=== PATIENT | male | born 1930 | race Caucasian/White ===

== ENCOUNTER 2019-05-14 17:51 | Inpatient (IN) | payer MEDICARE, OTHER ==
[~2019-05-14] VITALS: Ht 175.3 cm; Wt 77.3 kg
[~2019-05-14 17:51] MED LIST: ALBU18HF2 INH; ASPI81TA30 PO; CITA20TA19 PO; DONE5TAB3 PO; FORM12CA IH; HYT1T PO; LEVO50TA PO; LISI-600 PO; METO50TA16 PO; PRAV20TA4 PO; WARF-55 PO
[2019-05-14 18:46] LABS: BASOPHILS % (AUTO) 0.1 % (0-1); EOSINOPHILS % (AUTO) 0 % (0-6); HEMOGLOBIN 16.9 g/dl (14.0-17.9); LYMPHOCYTES # (AUTO) 1.5 X10'3 (1.1-4.8); LYMPHOCYTES % (AUTO) 8.1 % (21-51); MEAN CORPUSCULAR HEMOGLOBIN 30.6 PG (27.0-31.0); MEAN CORPUSCULAR HGB CONC 33.7 g/dL (33.0-36.5); MEAN CORPUSCULAR VOLUME 90.6 FL (78-98); MEAN PLATELET VOLUME 9.2 FL (7.4-10.4); MONOCYTES # (AUTO) 1.4 X10'3 (0-0.9); MONOCYTES % (AUTO) 7.2 % (2-12); NEUTROPHILS % (AUTO) 84.6 % (42-75); PLATELET COUNT 181 X10'3 (140-440); RED BLOOD COUNT 5.52 X10'6 (4.70-6.10); RED CELL DISTRIBUTION WIDTH 14.2 % (11.5-14.5); WHITE BLOOD COUNT 18.9 X10'3 (4.5-11.0)
[2019-05-14 18:58] LABS: ALANINE AMINOTRANSFERASE 497 U/L (12-78); ALBUMIN 3.5 G/DL (3.4-5.0); ALBUMIN/GLOBULIN RATIO 0.9 (1.1-1.5); ALKALINE PHOSPHATASE 149 IU/L (46-116); ANION GAP 12 (8-16); ASPARTATE AMINO TRANSFERASE 472 U/L (10-37); BILIRUBIN,TOTAL 1.7 MG/DL (0.1-1.0); BLOOD UREA NITROGEN 32 MG/DL (7-18); BUN/CREATININE RATIO 23.2 (5.4-32.0); CALCIUM 9.4 MG/DL (8.5-10.1); CHLORIDE 102 MMOL/L (99-107); CREATININE 1.38 MG/DL (0.60-1.10); GLUCOSE 159 MG/DL (70-104); LIPASE 78 U/L (73-393); POTASSIUM 4.6 MMOL/L (3.5-5.1); SODIUM 140 MMOL/L (135-145); TOTAL CARBON DIOXIDE 26.4 MMOL/L (24-32); TOTAL PROTEIN 7.5 G/DL (6.4-8.2); eGFR 49 ML/MIN
[2019-05-14 19:15] LABS: CLARITY,URINE CLOUDY (Clear); COLOR,URINE AMBER (Yellow); GLUCOSE, URINE NEGATIVE (Neg); KETONES,URINE NEGATIVE (Neg); LEUKOCYTE ESTERASE ,URINE NEGATIVE (Neg); NITRITES, URINE NEGATIVE (Neg); OCCULT BLOOD,URINE LARGE (Neg); PH,URINE 5.5 (4.8-8.0); PROTEIN,URINE 100 mg/dl (Neg); UROBILINOGEN,URINE 0.2 E.U/dL (0.2-1.0)
[2019-05-14 19:17] LABS: UA COLLECTION TYPE STRAIGHT CATH
[2019-05-14 19:31] LABS: RBC,URINE TNTC /HPF (0-2); WBC,URINE 0-4 /HPF (0-4)
[2019-05-14 19:32] LABS: BACTERIA,URINE NONE SEEN /HPF (Neg); SQUAMOUS EPITHELIAL CELL,UR FEW /LPF (FEW)
[2019-05-14 19:33] LABS: RENAL CELLS, URINE FEW /HPF; TRANSITIONAL EPI CELLS,URINE MANY /HPF
[2019-05-14] MEDS ORDERED: normal saline 1000ML IV soln IVB ONE (19:45)
[2019-05-14] MEDS ORDERED: morphine 4 MG/ML inj SYRINge IV ONE (19:45)
[2019-05-14] MEDS ORDERED: ondansetron/PF 4mg/2ml inj IV ONE (19:45)
--- NOTE | 2019-05-14 19:48 | NUR ---
CALLED [facility] AT 19:48 IN [place] [address] ON HER [address]
[2019-05-14] MEDS ORDERED: piperacillin/tazo 3.375gm/50ml 50 ML IV ONE (21:59)
[2019-05-14] MEDS ORDERED: magnesium hydroxide 30ml (MOM) UD suspension PO PRN (22:10)
[2019-05-14] MEDS ORDERED: ondansetron/PF 4mg/2ml inj IV PRN (22:10)
[2019-05-14] MEDS ORDERED: magnesium 4gm in 100ml NS 100 ML IV PRN (22:10)
[2019-05-14] MEDS ORDERED: acetaminophen 325mg tablet PO PRN (22:10)
[2019-05-14] MEDS ORDERED: potassium CL 10mEq/100ml bag 100 ML IV PRN ×2 (22:10)
[2019-05-14] MEDS ORDERED: mag hydrox/Alum hydrox/simeth 30ml oral suspension PO PRN (22:10)
[2019-05-14] MEDS ORDERED: magnesium Cl slow-release 64mg tablet PO PRN (22:10)
[2019-05-14] MEDS ORDERED: morphine 2 MG/ML inj. syringe IV PRN (22:10)
[2019-05-14] MEDS ORDERED: HYDROcodone/acetaminophen 5mg/325mg tablet PO PRN (22:10)
[2019-05-14] MEDS ORDERED: potassium Cl 20 mEq SR tablet PO PRN ×2 (22:10)
[2019-05-14] MEDS ORDERED: magnesium 2GM in 50ml NS 50 ML IV PRN (22:10)
--- NOTE | 2019-05-14 22:22 | NUR ---
FELTON HANLEY IS CAREGIVER [phone]
[2019-05-14] MEDS: normal saline 1000ml 1,000 ML IV SCH (22:25)
[2019-05-14] MEDS ORDERED: LEVE500T99 PO (22:45)
[2019-05-14] MEDS ORDERED: LISI1TAB32 PO (22:45)
[2019-05-14] MEDS ORDERED: CLON0.1T PO (22:45)
[2019-05-14] MEDS ORDERED: VENL75TA4 PO (22:45)
[2019-05-14] MEDS ORDERED: DOXE50CA4 PO (22:45)
[2019-05-14] MEDS: morphine 2 MG/ML inj. syringe IV PRN (23:37)
[2019-05-15] VITALS (18 sets, daily range): BP systolic 109–168; BP diastolic 53–78
--- NOTE | 2019-05-15 00:03 | NUR ---
Received report from TEXTILE SLITTING MACHINE OPERATOR Andree and patient to follow shortly.
[2019-05-15] MEDS ORDERED: morphine 2 MG/ML inj. syringe IV ONE (00:40)
[2019-05-15] MEDS ORDERED: hydrALAZINE 20mg/ml inj. IV PRN (02:20)
[2019-05-15] MEDS: piperacillin/tazo 3.375gm/50ml 50 ML IV SCH ×3 (05:23→22:31)
[2019-05-15] MEDS: morphine 2 MG/ML inj. syringe IV PRN (05:27)
--- NOTE | 2019-05-15 06:00 | NUR ---
Patient had put out 25cc in catheter bag, but the condom cath had come off and there was also medium urine output on the dry flow. Patient was bladder scanned at this time to check for any retention. No PVR .
[2019-05-15 06:30] LABS: ALANINE AMINOTRANSFERASE 344 U/L (12-78); ALBUMIN 3.2 G/DL (3.4-5.0); ALBUMIN/GLOBULIN RATIO 0.9 (1.1-1.5); ALKALINE PHOSPHATASE 129 IU/L (46-116); ANION GAP 9 (8-16); ASPARTATE AMINO TRANSFERASE 193 U/L (10-37); BILIRUBIN,TOTAL 1.9 MG/DL (0.1-1.0); BLOOD UREA NITROGEN 28 MG/DL (7-18); CALCIUM 8.7 MG/DL (8.5-10.1); CHLORIDE 106 MMOL/L (99-107); CREATININE 1.22 MG/DL (0.60-1.10); GLUCOSE 134 MG/DL (70-104); MAGNESIUM 1.7 MG/DL (1.5-2.4); POTASSIUM 4.6 MMOL/L (3.5-5.1); SODIUM 140 MMOL/L (135-145); TOTAL CARBON DIOXIDE 25.4 MMOL/L (24-32); TOTAL PROTEIN 6.7 G/DL (6.4-8.2); eGFR 56 ML/MIN
[2019-05-15 06:38] LABS: BASOPHILS % (AUTO) 0.1 % (0-1); EOSINOPHILS % (AUTO) 0 % (0-6); MONOCYTES # (AUTO) 1.4 X10'3 (0-0.9); MONOCYTES % (AUTO) 6.7 % (2-12)
[2019-05-15 06:40] LABS: HEMATOCRIT 49.7 % (42.0-52.0); HEMOGLOBIN 16.7 g/dl (14.0-17.9); LYMPHOCYTES # (AUTO) 1.4 X10'3 (1.1-4.8); LYMPHOCYTES % (AUTO) 6.8 % (21-51); MEAN CORPUSCULAR HEMOGLOBIN 30.7 PG (27.0-31.0); MEAN CORPUSCULAR HGB CONC 33.7 g/dL (33.0-36.5); MEAN CORPUSCULAR VOLUME 91.1 FL (78-98); MEAN PLATELET VOLUME 9.3 FL (7.4-10.4); NEUTROPHILS # (AUTO) 18.1 X10'3 (1.8-7.7); NEUTROPHILS % (AUTO) 86.4 % (42-75); PLATELET COUNT 133 X10'3 (140-440); RED BLOOD COUNT 5.46 X10'6 (4.70-6.10); RED CELL DISTRIBUTION WIDTH 14.6 % (11.5-14.5)
--- NOTE | 2019-05-15 06:45 | NUR ---
Reported off to Chrissie RN.
--- NOTE | 2019-05-15 06:45 | NUR ---
Patient in room [facility]. I have received report from MYNOR Villa and had the opportunity to ask questions and assume patient care.
[2019-05-15 07:22] LABS: PARTIAL THROMBOPLASTIN TIME 32 SECONDS (22-32)
[2019-05-15] MEDS: K and/or MAG REPLACEMENT MC SCH (07:49)
[2019-05-15] MEDS: metoprolol tartrate 50mg tablet PO SCH ×2 (08:00→20:05)
[2019-05-15] MEDS: venlafaxine 37.5mg tablet PO SCH (08:00)
[2019-05-15] MEDS: cloNIDine 0.1 mg tablet PO SCH (08:00)
[2019-05-15] MEDS: normal saline 1000ml 1,000 ML IV SCH ×2 (08:08→22:31)
--- NOTE | 2019-05-15 08:41 | NUR ---
unable to admin effexor for this pt. it is not available. messaged pharmacy. awaiting med
[2019-05-15] MEDS: citalopram 20mg tablet PO SCH (08:43)
[2019-05-15] MEDS: donepezil 5mg tablet PO SCH (08:43)
[2019-05-15] MEDS: levetiracetam 250mg tablet PO SCH (08:43)
[2019-05-15] MEDS: levoTHYROXINE 25mcg tablet PO SCH (08:43)
[2019-05-15] MEDS ORDERED: LIDOcaine 1% 30ml preserv. free vial ONE (09:13)
[2019-05-15] MEDS ORDERED: BUPIVAcaine/PF 2.5 mg/ml (0.25%) 30ml vial ONE (09:13)
[2019-05-15] MEDS ORDERED: ringers solution, lacted 1,000 ML IV SCH (09:24)
[2019-05-15] MEDS ORDERED: ondansetron/PF 4mg/2ml inj IV PRN (09:25)
[2019-05-15] MEDS ORDERED: morphine 4 MG/ML inj SYRINge IV PRN ×2 (09:25)
[2019-05-15] MEDS ORDERED: meperidine/PF 25mg/ml syringe IV PRN ×3 (09:25)
[2019-05-15] MEDS ORDERED: proCHLORperazine 10 MG/2 ml inj IV PRN (09:25)
--- NOTE | 2019-05-15 09:50 | NUR ---
Report called to SOLDERING INSPECTOR.
[2019-05-15] MEDS ORDERED: fentaNYL/PF 50MCG/1 ML 2ML syringe ONE ×2 (09:56→11:14)
[2019-05-15] MEDS ORDERED: midazolam 2 mg/2 ml injection ONE (09:57)
[2019-05-15] MEDS ORDERED: desflurane 240ml liquid inh. IH ONE (10:05)
[2019-05-15] MEDS ORDERED: acetaminophen 1000 MG/100ml vial IV ONE (10:05)
[2019-05-15] MEDS ORDERED: neostigmine methylsulfate 1 MG/ML 10ml vial ONE (10:05)
--- NOTE | 2019-05-15 10:20 | NUR ---
Pt off the floor to OR
[2019-05-15] MEDS ORDERED: LIDOcaine 1% (10mg/ml) 2ml vial ONE (10:25)
[2019-05-15] MEDS ORDERED: DONE10TA7 PO (10:54)
[2019-05-15] MEDS ORDERED: ceFAZolin 1000mg inj ONE ×2 (11:13)
[2019-05-15] MEDS ORDERED: LIDOcaine 2% (20mg/ml) 5ml vial ONE (11:13)
[2019-05-15] MEDS ORDERED: rocuronium 10mg/ml inj IV ONE (11:13)
[2019-05-15] MEDS ORDERED: etomidate 2mg/ml inj. ONE (11:13)
[2019-05-15] MEDS ORDERED: glycopyrrolate 0.2mg/ml inj ONE (11:56)
[2019-05-15] MEDS: HYDROmorphone/NS 1 mg/ml CADD 50 ML IV SCH ×6 (12:15→23:00)
[2019-05-15] MEDS ORDERED: CADD PCA waste documentation MC PRN (12:15)
[2019-05-15] MEDS ORDERED: naloxone 0.4 mg/ml inj IV PRN (12:15)
--- NOTE | 2019-05-15 12:25 | NUR ---
Received from OR via BED, accompanied by Anesthesiologist DR BUSTILLOS and report given by Anesthesiolgist. PT SLEEPY. OXYGENATING WELL ON 10 LPM O2 VIA MASK, NO RESP DISTRESS NOTED. PT IS NON VERBAL BUT NO SUBJECTIVE SX OF PAIN OR NAUSEA NOTED AT THIS TIME. LG ISLAND DSG TO R ABD WITH SCANT SANGINOUS DRAINAGE ON IT. ANALIA BULB DRAIN TO SAME AREA WITH DARK OUTPUT, GOOD SUCTION. FC PATENT, SCDS ON. VSS.
--- NOTE | 2019-05-15 13:10 | NUR ---
Report received from DOOR GLASS INSTALLERDaisy.
--- NOTE | 2019-05-15 13:25 | NUR ---
Report called to receiving nurse. Transferred via BED Belongings IN PT ROOM. PT RECD 25 MCG OF FENTANYL FROM ANESTHESIOLOGIST WHILE IN PACU, NODS YES WHEN ASKED IF IT HELPED PAIN. HIS FACE APPEARS CALM, NO GRIMACING OR MOANING. VSS. PO FLUIDS NOT GIVEN IN PACU. R RADIAL ART LINE DCD. PT TRANSFERRED TO SURGICAL FLOOR IN STABLE CONDITION, UNABLE TO LOCATE DAUGHTER AT THAT TIME. PT WILL BE ON TELE WITH SPO2 OVERNIGHT PER ORDERS. Special Issues communicated to receiving nurse.
--- NOTE | 2019-05-15 13:30 | NUR ---
Pt arrived back to room 354A from PACU.
[2019-05-15] MEDS ORDERED: FLU VACC QS2019-20 36MOS UP/PF 60 MCG/0.5 ML SYRINGE IMVAC ONE (14:30)
--- NOTE | 2019-05-15 15:20 | NUR ---
Problems reprioritized. Patient report given, questions answered & plan of care reviewed with MYNOR Ortiz.
--- NOTE | 2019-05-15 15:50 | NUR ---
Received report from Chrissie LOWE. Patient sleeping comfortably, breathing normally, no signs of pain noted at this time
--- NOTE | 2019-05-15 17:53 | NUR ---
Dilaudid CADD was not started at an earlier time. Attempting to document the administering time after I scanned patient and the drug but won't let me move forward when asking for ml/hr. The order is not continous dose but demand dose of 0.2mg. Pharmacist notified
--- NOTE | 2019-05-15 18:47 | NUR ---
Problems reprioritized. Patient report given, questions answered & plan of care reviewed with Andree Cao RN.
--- NOTE | 2019-05-15 19:10 | NUR ---
Patient in room [facility] 354. I have received report from MYNOR BRITO and had the opportunity to ask questions and assume patient care. Addendum: 05/15/19 at 1910 by Juanita Kelly RN Amended: Links added.
--- NOTE | 2019-05-15 20:00 | NUR ---
spoke with patient's daughter Maria A and specifically instructed not to give the patient any form of pain medications, told daughter that patient just had open abdominal surgery and that hes going to have pain, daughter stated that patient "wont need any pain medication" and that "he's a strong man". Informed patient that will discuss it with the Dr. in the morning during rounds.
[2019-05-15] MEDS: doxepin 25mg capsule PO SCH (20:05)
[2019-05-15] MEDS: heparin, porcine 5000 units/ml vial SQ SCH (20:06)
[2019-05-16 00:36] VITALS: BP 134/75
[2019-05-16] MEDS: HYDROmorphone/NS 1 mg/ml CADD 50 ML IV SCH ×12 (01:00→23:00)
[2019-05-16] MEDS: normal saline 1000ml 1,000 ML IV SCH ×3 (04:08→17:48)
[2019-05-16] MEDS: piperacillin/tazo 3.375gm/50ml 50 ML IV SCH ×3 (05:36→22:24)
--- NOTE | 2019-05-16 05:38 | NUR ---
patient had f/c placed after surgery yesterday, f/c noted to have 20cc at this time, bladder scanned wtih 52cc only in the bladder. patient f/c noted leaking and bedsheets was soaked with urine. f/c out
--- NOTE | 2019-05-16 06:26 | NUR ---
Problems reprioritized. Patient report given, questions answered & plan of care reviewed with MYNOR Alejandre.
[2019-05-16 06:27] LABS: BASOPHILS % (AUTO) 0.1 % (0-1); EOSINOPHILS % (AUTO) 0 % (0-6); HEMATOCRIT 39.1 % (42.0-52.0); LYMPHOCYTES # (AUTO) 1.4 X10'3 (1.1-4.8); LYMPHOCYTES % (AUTO) 8.3 % (21-51); MEAN CORPUSCULAR HEMOGLOBIN 30.2 PG (27.0-31.0); MEAN CORPUSCULAR HGB CONC 33.2 g/dL (33.0-36.5); MEAN PLATELET VOLUME 9.3 FL (7.4-10.4); MONOCYTES # (AUTO) 1.2 X10'3 (0-0.9); MONOCYTES % (AUTO) 6.8 % (2-12); NEUTROPHILS # (AUTO) 14.6 X10'3 (1.8-7.7); NEUTROPHILS % (AUTO) 84.8 % (42-75); PLATELET COUNT 136 X10'3 (140-440); RED BLOOD COUNT 4.29 X10'6 (4.70-6.10); RED CELL DISTRIBUTION WIDTH 15.1 % (11.5-14.5); WHITE BLOOD COUNT 17.3 X10'3 (4.5-11.0)
[2019-05-16 06:30] VITALS: BP 148/82
--- NOTE | 2019-05-16 06:33 | NUR ---
Patient in room [facility] 354. I have received report from Andree Cao RN and had the opportunity to ask questions and assume patient care.
[2019-05-16 06:42] LABS: ALANINE AMINOTRANSFERASE 156 U/L (12-78); ALBUMIN 2.5 G/DL (3.4-5.0); ALBUMIN/GLOBULIN RATIO 0.8 (1.1-1.5); ALKALINE PHOSPHATASE 85 IU/L (46-116); ANION GAP 12 (8-16); ASPARTATE AMINO TRANSFERASE 86 U/L (10-37); BILIRUBIN,TOTAL 1.3 MG/DL (0.1-1.0); BLOOD UREA NITROGEN 25 MG/DL (7-18); BUN/CREATININE RATIO 17.5 (5.4-32.0); CALCIUM 8.3 MG/DL (8.5-10.1); CHLORIDE 109 MMOL/L (99-107); CREATININE 1.43 MG/DL (0.60-1.10); GLUCOSE 128 MG/DL (70-104); MAGNESIUM 1.6 MG/DL (1.5-2.4); POTASSIUM 3.9 MMOL/L (3.5-5.1); SODIUM 143 MMOL/L (135-145); TOTAL CARBON DIOXIDE 22.3 MMOL/L (24-32); TOTAL PROTEIN 5.7 G/DL (6.4-8.2); eGFR 47 ML/MIN
[2019-05-16] MEDS: K and/or MAG REPLACEMENT MC SCH (08:00)
[2019-05-16] MEDS: aspirin 81mg tablet.DR PO SCH (08:26)
[2019-05-16] MEDS: heparin, porcine 5000 units/ml vial SQ SCH ×2 (08:26→19:46)
[2019-05-16] MEDS: donepezil 5mg tablet PO SCH (08:26)
[2019-05-16] MEDS: levetiracetam 250mg tablet PO SCH (08:26)
[2019-05-16] MEDS: citalopram 20mg tablet PO SCH (08:26)
[2019-05-16] MEDS: cloNIDine 0.1 mg tablet PO SCH (08:26)
[2019-05-16] MEDS: venlafaxine 37.5mg tablet PO SCH (08:27)
[2019-05-16] MEDS: metoprolol tartrate 50mg tablet PO SCH ×2 (08:27→19:45)
[2019-05-16] MEDS: levoTHYROXINE 25mcg tablet PO SCH (08:27)
[2019-05-16 11:00] VITALS: BP 134/67
--- NOTE | 2019-05-16 17:02 | NUR ---
Received a phone call from patient's daughter Maria A. Daughter expressed concern about patient's nutrition, requesting Ensure for this patient. The daughter states "I disagree with the doctor about not addressing his nutrition!" I told her that the doctor had told me today that we are keeping patient on a clear liquid diet for now. Patient's daughter expressed not being happy about it and demanding the doctor to call her. I called the dietary to find out if we even have Ensure clear, the dietary staff said yes but will require a doctor's order. I called Dr. Contreras, told him about the daughter's concern. Dr. Contreras said he wanted patient to be on clear liquid diet and did not want Ensure clear for this patient at this time. Dr. Contreras also declined intent to call the daughter but stated that he will be making rounds tomorrow.
[2019-05-16] MEDS: NUT.TX.IMPAIRED DIGEST FXN (Ensure Clear) 237 ML PO SCH (18:00)
--- NOTE | 2019-05-16 18:20 | NUR ---
Problems reprioritized. Patient report given, questions answered & plan of care reviewed with Amaris LOWE and Kathi LOWE.
--- NOTE | 2019-05-16 18:23 | NUR ---
Patient in room [facility] 354. I have received report from Hill LOWE and Yuliya RN and had the opportunity to ask questions and assume patient care. Pt sitting up in bed with CADD at standard settings, zosyn running at 25 ml/hr. No signs of distress, will continue to monitor.
--- NOTE | 2019-05-16 18:52 | NUR ---
Patient in room [facility] 354. I have received report from Hill LOWE and had the opportunity to ask questions and assume patient care.
[2019-05-16] MEDS: lactobacillus rhamnosus 10,000 MMU CELLS/CAPSULE PO SCH (19:45)
[2019-05-16 20:00] VITALS: BP 154/89
[2019-05-16] MEDS: doxepin 25mg capsule PO SCH (22:23)
[2019-05-17 00:18] VITALS: BP 151/100
[2019-05-17] MEDS: HYDROmorphone/NS 1 mg/ml CADD 50 ML IV SCH ×12 (01:00→23:00)
[2019-05-17] MEDS: normal saline 1000ml 1,000 ML IV SCH ×3 (02:56→22:47)
[2019-05-17] MEDS: piperacillin/tazo 3.375gm/50ml 50 ML IV SCH ×3 (05:23→22:42)
[2019-05-17 05:45] LABS: BASOPHILS % (AUTO) 0.2 % (0-1); EOSINOPHILS % (AUTO) 0 % (0-6); HEMATOCRIT 33.4 % (42.0-52.0); HEMOGLOBIN 11.4 g/dl (14.0-17.9); LYMPHOCYTES # (AUTO) 1.4 X10'3 (1.1-4.8); LYMPHOCYTES % (AUTO) 12.1 % (21-51); MEAN CORPUSCULAR HEMOGLOBIN 30.8 PG (27.0-31.0); MEAN CORPUSCULAR HGB CONC 34.1 g/dL (33.0-36.5); MEAN CORPUSCULAR VOLUME 90.3 FL (78-98); MEAN PLATELET VOLUME 9.1 FL (7.4-10.4); MONOCYTES # (AUTO) 0.7 X10'3 (0-0.9); MONOCYTES % (AUTO) 6.3 % (2-12); NEUTROPHILS # (AUTO) 9.5 X10'3 (1.8-7.7); NEUTROPHILS % (AUTO) 81.4 % (42-75); PLATELET COUNT 121 X10'3 (140-440); RED CELL DISTRIBUTION WIDTH 14.7 % (11.5-14.5); WHITE BLOOD COUNT 11.7 X10'3 (4.5-11.0)
[2019-05-17 06:11] LABS: ALANINE AMINOTRANSFERASE 84 U/L (12-78); ALBUMIN 2.2 G/DL (3.4-5.0); ALBUMIN/GLOBULIN RATIO 0.7 (1.1-1.5); ALKALINE PHOSPHATASE 76 IU/L (46-116); ANION GAP 12 (8-16); ASPARTATE AMINO TRANSFERASE 58 U/L (10-37); BILIRUBIN,TOTAL 0.9 MG/DL (0.1-1.0); BLOOD UREA NITROGEN 24 MG/DL (7-18); BUN/CREATININE RATIO 19.8 (5.4-32.0); CALCIUM 8.5 MG/DL (8.5-10.1); CHLORIDE 111 MMOL/L (99-107); CREATININE 1.21 MG/DL (0.60-1.10); GLUCOSE 110 MG/DL (70-104); MAGNESIUM 1.7 MG/DL (1.5-2.4); POTASSIUM 3.9 MMOL/L (3.5-5.1); SODIUM 147 MMOL/L (135-145); TOTAL CARBON DIOXIDE 24.2 MMOL/L (24-32); TOTAL PROTEIN 5.4 G/DL (6.4-8.2); eGFR 57 ML/MIN
--- NOTE | 2019-05-17 06:30 | NUR ---
Problems reprioritized. Patient report given, questions answered & plan of care reviewed with Christen LOWE.
--- NOTE | 2019-05-17 06:34 | NUR ---
Problems reprioritized. Patient report given, questions answered & plan of care reviewed with Christen LOWE.
--- NOTE | 2019-05-17 06:58 | NUR ---
Patient in room [facility] 354. I have received report from Amaris LOWE and had the opportunity to ask questions and assume patient care.
[2019-05-17 07:00] VITALS: BP 155/74
[2019-05-17] MEDS: K and/or MAG REPLACEMENT MC SCH (08:00)
[2019-05-17] MEDS: metoprolol tartrate 50mg tablet PO SCH ×2 (08:01→20:20)
[2019-05-17] MEDS: citalopram 20mg tablet PO SCH (08:02)
[2019-05-17] MEDS: cloNIDine 0.1 mg tablet PO SCH (08:02)
[2019-05-17] MEDS: aspirin 81mg tablet.DR PO SCH (08:02)
[2019-05-17] MEDS: levoTHYROXINE 25mcg tablet PO SCH (08:02)
[2019-05-17] MEDS: levetiracetam 250mg tablet PO SCH (08:02)
[2019-05-17] MEDS: donepezil 5mg tablet PO SCH (08:03)
[2019-05-17] MEDS: heparin, porcine 5000 units/ml vial SQ SCH ×2 (08:03→20:17)
[2019-05-17] MEDS: lactobacillus rhamnosus 10,000 MMU CELLS/CAPSULE PO SCH ×2 (08:03→20:06)
[2019-05-17] MEDS: venlafaxine 37.5mg tablet PO SCH (08:03)
[2019-05-17] MEDS: NUT.TX.IMPAIRED DIGEST FXN (Ensure Clear) 237 ML PO SCH ×3 (08:04→17:49)
[2019-05-17] MEDS ORDERED: FLU VACC QS2019-20 36MOS UP/PF 60 MCG/0.5 ML SYRINGE IMVAC ONE (10:00)
[2019-05-17 11:57] VITALS: BP 115/62
--- NOTE | 2019-05-17 18:47 | NUR ---
Patient in room [facility] 354. I have received report from Christen LOWE and had the opportunity to ask questions and assume patient care.
--- NOTE | 2019-05-17 19:07 | NUR ---
Patient in room [facility] 354. I have received report from Christen LOWE and had the opportunity to ask questions and assume patient care.
[2019-05-17 19:49] VITALS: BP 159/83
[2019-05-17] MEDS: doxepin 25mg capsule PO SCH (20:06)
[2019-05-18 00:06] VITALS: BP 131/72
[2019-05-18] MEDS: HYDROmorphone/NS 1 mg/ml CADD 50 ML IV SCH ×8 (01:00→15:00)
[2019-05-18 05:36] LABS: BASOPHILS % (AUTO) 0.3 % (0-1); EOSINOPHILS # (AUTO) 0.1 X10'3 (0-0.9); EOSINOPHILS % (AUTO) 0.8 % (0-6); HEMATOCRIT 29.1 % (42.0-52.0); HEMOGLOBIN 9.9 g/dl (14.0-17.9); LYMPHOCYTES % (AUTO) 15.2 % (21-51); MEAN CORPUSCULAR HGB CONC 34.1 g/dL (33.0-36.5); MEAN CORPUSCULAR VOLUME 90.9 FL (78-98); MEAN PLATELET VOLUME 9.4 FL (7.4-10.4); MONOCYTES # (AUTO) 0.4 X10'3 (0-0.9); MONOCYTES % (AUTO) 6.9 % (2-12); NEUTROPHILS % (AUTO) 76.8 % (42-75); PLATELET COUNT 111 X10'3 (140-440); RED CELL DISTRIBUTION WIDTH 14.7 % (11.5-14.5); WHITE BLOOD COUNT 6.5 X10'3 (4.5-11.0)
[2019-05-18 06:00] LABS: ALANINE AMINOTRANSFERASE 57 U/L (12-78); ALBUMIN 2.1 G/DL (3.4-5.0); ALBUMIN/GLOBULIN RATIO 0.7 (1.1-1.5); ALKALINE PHOSPHATASE 82 IU/L (46-116); ANION GAP 10 (8-16); ASPARTATE AMINO TRANSFERASE 44 U/L (10-37); BILIRUBIN,TOTAL 0.7 MG/DL (0.1-1.0); BLOOD UREA NITROGEN 20 MG/DL (7-18); BUN/CREATININE RATIO 19.8 (5.4-32.0); CALCIUM 8.1 MG/DL (8.5-10.1); CHLORIDE 113 MMOL/L (99-107); CREATININE 1.01 MG/DL (0.60-1.10); GLUCOSE 100 MG/DL (70-104); MAGNESIUM 1.8 MG/DL (1.5-2.4); POTASSIUM 3.3 MMOL/L (3.5-5.1); SODIUM 145 MMOL/L (135-145); TOTAL CARBON DIOXIDE 21.7 MMOL/L (24-32); TOTAL PROTEIN 5.1 G/DL (6.4-8.2); eGFR 70 ML/MIN
--- NOTE | 2019-05-18 06:22 | NUR ---
Problems reprioritized. Patient report given, questions answered & plan of care reviewed with Christen LOWE.
--- NOTE | 2019-05-18 06:24 | NUR ---
Problems reprioritized. Patient report given, questions answered & plan of care reviewed with Christen LOWE.
--- NOTE | 2019-05-18 06:52 | NUR ---
Patient in room [facility] 354. I have received report from Amaris LOWE and had the opportunity to ask questions and assume patient care.
[2019-05-18 07:00] VITALS: BP 106/73
[2019-05-18] MEDS: levoTHYROXINE 25mcg tablet PO SCH (07:00)
[2019-05-18] MEDS: NUT.TX.IMPAIRED DIGEST FXN (Ensure Clear) 237 ML PO SCH ×2 (08:00→13:44)
[2019-05-18] MEDS: K and/or MAG REPLACEMENT MC SCH (08:00)
[2019-05-18] MEDS: piperacillin/tazo 3.375gm/50ml 50 ML IV SCH ×2 (09:01→14:00)
[2019-05-18] MEDS: heparin, porcine 5000 units/ml vial SQ SCH (09:01)
[2019-05-18] MEDS: venlafaxine 37.5mg tablet PO SCH (09:01)
[2019-05-18] MEDS: cloNIDine 0.1 mg tablet PO SCH (09:01)
[2019-05-18] MEDS: citalopram 20mg tablet PO SCH (09:01)
[2019-05-18] MEDS: aspirin 81mg tablet.DR PO SCH (09:01)
[2019-05-18 09:02] VITALS: BP_SYST 106
[2019-05-18] MEDS: metoprolol tartrate 50mg tablet PO SCH (09:02)
[2019-05-18] MEDS: levetiracetam 250mg tablet PO SCH (09:03)
[2019-05-18] MEDS: donepezil 5mg tablet PO SCH (09:03)
[2019-05-18] MEDS: lactobacillus rhamnosus 10,000 MMU CELLS/CAPSULE PO SCH (09:03)
[2019-05-18] MEDS: normal saline 1000ml 1,000 ML IV SCH (09:22)
--- NOTE | 2019-05-18 10:31 | NUR ---
Initial: Pt admit with cholecystitis now s/p laparoscopic converted to open cholecystectomy for gangrenous cholecystitis POD #3. Diet has just been advanced to full liquid from clears receiving nectar thick liquids per reported usual home diet. Pt documented as A/O x 1 with expressive aphasia with hx dysphagia. RD consulted for BSS to determine most appropriate texture modification for diet advancement. LBM 05/17. No nutrition diagnosis at this time. Will continue to follow. Recommendations: 1) Diet advancement to regular as medically indicated with texture per ST recs pending BSS 2) Monitor need for ONS 3) Bowel care 4) Wt per rx Addendum: 05/18/19 at [address] Amended: Links added.
--- NOTE | 2019-05-18 12:57 | NUR ---
ANALIA removed per DR Contreras Intact 25mls in container
--- NOTE | 2019-05-18 14:30 | NUR ---
All cares given to patient, oral care, checked hourly and changed prn. Bed bath was given on noc shift 05/17/19. Repeated conversations both at hospital bedside and with gamaliel Banerjee on phone x3 calls. informing lavonne of patients condition and care. Gamaliel banerjee listed the things she expected of staff to perform, as in oral care , feeding, PT, changing right hand cleaned and fresh wash cloth applied to contracted hand. All cares carried out. Gamaliel Banerjee insistent that patient should come home as she is the primary caregiver. Staff explained to daughter that patient needed surgical clearance and hospitalist to DC patient. Conversations with Dr Contreras and DR olson procurred, patient is to be DC this afternoon,Lavonne called and informed.
[2019-05-18] MEDS ORDERED: AMOX-419 PO (14:32)
[2019-05-18] MEDS ORDERED: potassium Cl 20 mEq SR tablet PO STA (14:42)
--- NOTE | 2019-05-18 16:49 | NUR ---
1600 patient DC jami after all dc INSTRUCTIONS GIVEN TO PATIENT AND DAUGHTER. PATIENT DC VIA PRIVATE CAR HOME WITH DAUGHTER IN STABLE CONDITION.
--- NOTE | 2019-05-18 18:11 | NUR ---
patients called stated that the prescription is not at [facility] [place] she waited 40 min. I called the pharmacy on [facility] and they have the medication and it was filled at 1705. Patients hung and called back and spoke to the racing secretary and handicapper who stated the patient wanted the prescription called now called into [facility] in [facility] self contained behavior unit teacher is working on that.
--- NOTE | 2019-05-19 08:00 | NUR ---
Patients daughter called, she was yelling at me when I answered the phone stating that she needed the doctor to call her. I asked her for a name because I am not sure who she is calling about. Women was stating that her father was discharged yesterday and was short of breath and needed oxygen. I advised her that she would have to bring him back into the ER. Women yelled " I am very disgusted and will not bring him back to the hospital" I tried to ask her for the spelling of the last name so I could look up if the patient has home health scheduled to come out and see him but women hung up on me.
== END 2019-05-18 16:10 | disposition home health service (06) | DRG 415 ==
LOC: ER 17:54 → ED HOLD 22:18 → SUR 3N 23:59
PROVIDERS: ADMIT Hospitalist; ATTEND Internal Medicine
PROC: 0FJ44ZZ Inspection of Gallbladder, Percutaneous Endoscopic Approach (ICD-10-PCS; 2019-05-15)
PROC: 0FT40ZZ Resection of Gallbladder, Open Approach (ICD-10-PCS; principal; 2019-05-15 10:05)
PROC: 3E02340 Introduction of Influenza Vaccine into Muscle, Percutaneous Approach (ICD-10-PCS; 2019-05-17)
DX: K80.00 Calculus of gallbladder with acute cholecystitis without obstruction (principal); N17.9 Acute kidney failure, unspecified; B17.9 Acute viral hepatitis, unspecified; I69.351 Hemiplegia and hemiparesis following cerebral infarction affecting right dominant side; E78.00 Pure hypercholesterolemia, unspecified; K21.9 Gastro-esophageal reflux disease without esophagitis; K82.A1 Gangrene of gallbladder in cholecystitis; I10 Essential (primary) hypertension; D64.9 Anemia, unspecified; I25.10 Atherosclerotic heart disease of native coronary artery without angina pectoris; I69.320 Aphasia following cerebral infarction; Z53.31 Laparoscopic surgical procedure converted to open procedure; Z85.038 Personal history of other malignant neoplasm of large intestine; Z85.841 Personal history of malignant neoplasm of brain; Z95.5 Presence of coronary angioplasty implant and graft; Z23 Encounter for immunization; Z87.01 Personal history of pneumonia (recurrent); Z90.49 Acquired absence of other specified parts of digestive tract; Z95.0 Presence of cardiac pacemaker; Z79.899 Other long term (current) drug therapy; Z79.82 Long term (current) use of aspirin
CPT/HCPCS: 36415; 71045; 76700; 80053; 81001; 82948; 83690; 83735; 84443; 85025; 85610; 85730; 87081; 93005; 96374; 96375; 97110; 97112; 97161; 97530; 99285; A4215; A4618; A7000; C1758; G0378; J0131; J0690; J1170; J1644; J2001; J2250; J2270; J2405; J2543; J2710; J3010; J3490; J7030; J7120; Q2037